=== PATIENT | female | born 1975 | race Caucasian/White ===

== ENCOUNTER 2016-09-30 18:46 | Emergency (ER) | payer BC ==
[~2016-09-30] VITALS: Ht 180.3 cm; Wt 98.7 kg
[2016-09-30 18:46] VITALS: BP 143/72
[2016-09-30] MEDS ORDERED: fentaNYL PF 100 MCG/2 ML VIAL IV PRN (19:30)
[2016-09-30 19:35] LABS: U PREG PATIENT NEGATIVE (NEG)
[2016-09-30] MEDS ORDERED: IV NORMAL SALINE 1,000ML 1,000 ML IV SCH (19:35)
[2016-09-30] MEDS ORDERED: KETOROLAC 30 MG/ML VIAL. IV ONE (19:35)
[2016-09-30] MEDS ORDERED: ONDANSETRON PF 4 MG/2 ML VIAL. IV ONE (19:35)
[2016-09-30 19:36] LABS: CLARITY,URINE CLOUDY; COLOR,URINE YELLOW
[2016-09-30 19:37] LABS: BILIRUBIN,URINE NEG (NEG)
[2016-09-30 19:38] LABS: NITRITE,URINE NEG (NEG); UROBILINOGEN,URINE 0.2 mg/dL (0.2 mg/dL)
--- NOTE | 2016-09-30 19:38 | ED.ADGEN ---
Past History Past Medical History: IBS, Kidney Stones, Other Past Surgical History: No Surgical History Alcohol Use: None Drug Use: None Adult General HPI HPI Patient is a 40-year-old woman, with a history of atrial fibrillation, irritable bowel syndrome, renal calculi, who presents to the emergency department with a complaint of back and abdominal pain associated with intractable nausea and vomiting that began this morning. Patient states that she 's had intermittent flank pain for some time, hasn't evaluated by Dr. Philip of urology, he states is planning obtaining additional imaging with IV contrast to further elucidate symptoms. She states that the symptoms she is. Sent currently do feel like her previous kidney stone, which occurred last year. She states she is having some pain with urination, persistent nausea and vomiting, denies any fevers or chills, any recent travel or surgery, chest pain or shortness breath, any respiratory symptoms, any weakness, numbness, tingling, rashes, swelling extremities, states that the symptoms have been intermittent for 2 months but have been worse today. No injuries, no inciting factors. She has taken ibuprofen and acetaminophen earlier today without relief. Last dose was midmorning. Review of Systems Review of Systems Constitutional: Denies fever or chills [] Eyes: Denies change in visual acuity, redness, or eye pain [] HENT: Denies nasal congestion or sore throat [] Respiratory: Denies cough or shortness of breath [] Cardiovascular: No additional information not addressed in HPI [] GI: Complaining of abdominal pain, nausea, vomiting, diarrhea, no bloody stools. : Dysuria, no hematuria. [] Musculoskeletal: Denies back pain or joint pain [] Integument: Denies rash or skin lesions [] Neurologic: Denies headache, focal weakness or sensory changes [] Endocrine: Denies polyuria or polydipsia [] Current Medications Current Medications Current Medications Medications (Trade) Dose Ordered Sig/Mihaela Start Time Stop Time Status Last Admin Dose Admin Fentanyl Citrate (Fentanyl 2ml Vial) 50 mcg PRN Q15MIN PRN 09/30/16 19:30 10/01/16 19:29 09/30/16 19:50 50 MCG Ketorolac Tromethamine (Toradol) 10 mg 1X ONCE 09/30/16 19:35 09/30/16 19:37 DC 09/30/16 19:50 10 MG Levofloxacin/ Dextrose 150 ml @ 150 mls/hr 1X ONCE 09/30/16 21:30 09/30/16 22:29 DC 09/30/16 21:05 150 MLS/HR Metronidazole (Flagyl) 500 mg 1X ONCE 09/30/16 21:30 09/30/16 21:31 DC 09/30/16 21:07 500 MG Ondansetron HCl (Zofran Odt) 4 mg 1X ONCE 09/30/16 21:30 09/30/16 21:31 DC 09/30/16 21:07 4 MG Ondansetron HCl (Zofran) 4 mg 1X ONCE 09/30/16 19:35 09/30/16 19:37 DC 09/30/16 19:50 4 MG Oxycodone/ Acetaminophen (Percocet 5/325) 1 tab 1X ONCE 09/30/16 21:30 09/30/16 21:31 DC 09/30/16 21:07 1 TAB Sodium Chloride 1,000 ml @ 1,000 mls/hr Q1H 09/30/16 19:35 09/30/16 20:34 DC 09/30/16 19:50 1,000 MLS/HR Allergies Allergies Allergies Coded Allergies Type Severity Reaction Last Updated Verified Cephalosporins Allergy Intermediate 11/01/15 Yes doxycycline Allergy Intermediate 11/01/15 Yes Physical Exam Physical Exam Constitutional: Well developed, well nourished, no acute distress, non-toxic appearance. [] HENT: Normocephalic, atraumatic, bilateral external ears normal, oropharynx moist, no oral exudates, nose normal. [] Eyes: PERRLA, EOMI, conjunctiva normal, no discharge. [] Neck: Normal range of motion, no tenderness, supple, no stridor. [] Cardiovascular:Heart rate regular rhythm, no murmur, S1, S2, rubs or gallops. [] Lungs & Thorax: Bilateral breath sounds clear to auscultation, no wheezing, rhonchi, rales. No chest wall crepitus or tenderness. [] Abdomen: Bowel sounds normal, soft, patient with tenderness palpation in the lower abdomen, no rebound, rigidity, no guarding, no masses, no pulsatile masses. [] Skin: Warm, dry, no erythema, no rash. [] Back: No tenderness, positive bilateral CVA tenderness. Left-sided greater than right. [] Extremities: No tenderness, no cyanosis, no clubbing, ROM intact, no edema. Negative Homans sign. [] Neurologic: Alert and oriented X 3, normal motor function, normal sensory function, no focal deficits noted. [] Psychologic: Affect normal, judgement normal, mood normal. [] Current Patient Data Vital Signs Vital Signs Date Time Temp Pulse Resp B/P (MAP) Pulse Ox O2 Delivery O2 Flow Rate FiO2 09/30/16 18:46 98.3 131 24 100 Room Air Lab Results Laboratory Tests Test 09/30/16 19:01 09/30/16 19:35 Urine Collection Type Unknown Urine Color Yellow Urine Clarity Cloudy Urine pH 5.5 Urine Specific [place] >=1.030 Urine Protein 30 mg/dl (NEG-TRACE) Urine Glucose (UA) Neg mg/dL (NEG) Urine Ketones (Stick) 15 mg/dL (NEG) Urine Blood Mod (NEG) Urine Nitrite Neg (NEG) Urine Bilirubin Neg (NEG) Urine Urobilinogen Dipstick 0.2 mg/dL (0.2 mg/dL) Urine Leukocyte Esterase Trace (NEG) Urine Test Negative (NEG) White Blood Count 10.0 x10^3/uL (4.0-11.0) Red Blood Count 4.69 x10^6/uL (3.50-5.40) Hemoglobin 14.5 g/dL (12.0-15.5) Hematocrit 42.1 % (36.0-47.0) Mean Corpuscular Volume 90 fL (79-100) Mean Corpuscular Hemoglobin 31 pg (25-35) Mean Corpuscular Hemoglobin Concent 34 g/dL (31-37) Red Cell Distribution Width 12.7 % (11.5-14.5) Platelet Count 181 x10^3/uL (140-400) Neutrophils (%) (Auto) 79 % (31-73) H Lymphocytes (%) (Auto) 15 % (24-48) L Monocytes (%) (Auto) 5 % (0-9) Eosinophils (%) (Auto) 0 % (0-3) Basophils (%) (Auto) 0 % (0-3) Neutrophils # (Auto) 8.0 x10^3uL (1.8-7.7) H Lymphocytes # (Auto) 1.5 x10^3/uL (1.0-4.8) Monocytes # (Auto) 0.5 x10^3/uL (0.0-1.1) Eosinophils # (Auto) 0.0 x10^3/uL (0.0-0.7) Basophils # (Auto) 0.0 x10^3/uL (0.0-0.2) Sodium Level 140 mmol/L (136-145) Potassium Level 3.8 mmol/L (3.5-5.1) Chloride Level 103 mmol/L (98-107) Carbon Dioxide Level 24 mmol/L (21-32) Anion Gap 13 (6-14) Blood Urea Nitrogen 8 mg/dL (7-20) Creatinine 1.0 mg/dL (0.6-1.0) Estimated GFR (Cockcroft-Gault) 62.1 BUN/Creatinine Ratio 8 (6-20) Glucose Level 94 mg/dL (70-99) Calcium Level 9.0 mg/dL (8.5-10.1) Total Bilirubin 0.6 mg/dL (0.2-1.0) Aspartate Amino Transferase (AST) 21 U/L (15-37) Alanine Aminotransferase (ALT) 27 U/L (14-59) Alkaline Phosphatase 78 U/L (46-116) Total Protein 7.5 g/dL (6.4-8.2) Albumin 3.3 g/dL (3.4-5.0) L Albumin/Globulin Ratio 0.8 (1.0-1.7) L Lipase 70 U/L (73-393) L EKG EKG EC: Sinus rhythm, heart rate 99 bpm, sinus rhythm, upright axis, QTC of 410, VT 132, QRS of 74, contour normality is noted in the anterior leads, but no ST elevations or depressions, abnormal ECG, does not meet STEMI criteria. As interpreted by me. [] Radiology/Procedures Radiology/Procedures [][address] [address] IMAGING REPORT Signed PATIENT: OMER ESTRELLA ACCOUNT: [id number] : 1975 LOCATION: ER AGE: 40 SEX: F EXAM STATUS: REG ER ORD. PHYSICIAN: VESTA HAJI DO REASON: Abd pain/flank pain/hx renal calculi PROCEDURE: CT ABDOMEN PELVIS WO CONTRAST INDICATION: ABD PAIN, HX RENAL CALCULI, SENDING PREVIOUS CT FROM 11/01/2015 COMPARISON: November 01, 2015 TECHNIQUE: Axial CT images were obtained through the abdomen and pelvis without intravenous contrast. Limited assessment of solid organ structures and vasculature secondary to lack of intravenous contrast. One or more of the following individualized dose reduction techniques were utilized for this examination: 1. Automated exposure control; 2. Adjustment of the mA and/or kV according to patient size; 3. Use of iterative reconstruction technique. FINDINGS: Abdomen: Chest Base: Partially imaged without gross abnormality. Vessels: No abdominal aortic aneurysm. Liver/Biliary: No intrahepatic biliary duct dilation. Pancreas: No peripancreatic edema. Spleen: Normal. Kidneys/Adrenal: No hydronephrosis. There is a couple suspected tiny nonobstructive renal stones measuring up to about 2 mm on the right. GI: Small fat-containing umbilical hernia. There is some edema adjacent to the colon including ascending and transverse. The appendix does not appear grossly inflamed at this time. Small free fluid. Pelvis: Bladder: No definite adjacent inflammation. There are some degenerative changes of the spine including osteophyte formation encroaching on central canal at L1-2 IMPRESSION: 1. There is edema adjacent to a portion of the proximal colon. Would correlate with symptoms in the region since colitis can have this appearance. If the patient has not had a history of colonoscopy then a follow-up examination or colonoscopy could be obtained after treatment to ensure resolution to exclude neoplastic causes. Electronically signed by: Nilo Ortega MD (09/30/2016 8:34 PM) DICTATED AND SIGNED BY: NILO ORTEGA MD DATE: 09/30/162024 CC: VESTA HAJI DO; PCP,NO ~ Course & Med Decision Making Course & Med Decision Making Pertinent Labs and Imaging studies reviewed. (See chart for details) Patient received IV Toradol, fentanyl, IV fluids, Zofran in the emergency room, with resolution of her nausea, on re-evaluation, she states she is pain-free at this time. After discussion at bedside, will obtain a noncontrast CT of the abdomen and pelvis to evaluate for renal calculi, patient also provide adequate visualization of rest of the patient's abdomen as discussed. Laboratory studies also obtained. studies not reveal any evidence acutely concerning findings. Urinalysis revealed ketones, but no nitrates, and trace leuk esterase. CT that it pelvis did not reveal any evidence of some obstructing stone or other urological complaints, however noted to have edema of the proximal colon consistent with colitis. As the patient is experiencing diarrhea along with vomiting and abdominal pain, is consistent with the patient's symptoms. Patient said states that she is a history of year-old bowel syndrome, and last received a colonoscopy 20 years ago by her estimation. She does not currently have a GI physician. At this time she continues to rest comfortably, with no further nausea or vomiting. After discussion she is agreeable to an oral trial in the emergency department, with the plan for discharge home and follow-up with GI for a colonoscopy once the acute phase is resolved. Patient was given oral antibiotics and pain medication along with Zofran in the ED, which she tolerated without issue. As her symptoms remain well managed, patient discharged home in stable condition with prescriptions for metronidazole, Levaquin, Percocet, Zofran, contact information for Dr. Barbour of gastroenterology, clear and detailed return instructions and plan as above. Final Impression Final Impression [] Problems: Dragon Disclaimer Dragon Disclaimer This electronic medical record was generated, in whole or in part, using a voice recognition dictation system. Departure: Impression: Primary Impression: Colitis Disposition: 01 HOME, SELF-CARE Condition: IMPROVED Scripts Oxycodone Hcl/Acetaminophen (PERCOCET 5-325 MG TABLET) 1 Each Tablet 1 TAB PO QID Y for PAIN, #14 TAB Prov: VESTA HAJI DO 09/30/16 Ondansetron Hcl (ZOFRAN) 4 Mg Tablet 4 MG PO PRN Q6-8HRS for NAUSEA, #12 TAB Prov: VESTA HAJI DO 09/30/16 Levofloxacin (LEVAQUIN) 750 Mg Tablet 1 TAB PO DAILY, #7 TAB Prov: VESTA HAJI DO 09/30/16 Metronidazole (METRONIDAZOLE) 500 Mg Tablet 1 TAB PO TID, #27 TAB Prov: VESTA HAJI DO 09/30/16 VESTA HAJI DO September 30, 2016 19:38
[2016-09-30 19:39] LABS: GLUCOSE,URINE NEG (NEG)
[2016-09-30 19:56] LABS: BASO % 0 % (0-3); EOS % 0 % (0-3); HEMATOCRIT 42.1 % (36.0-47.0); HEMOGLOBIN 14.5 g/dL (12.0-15.5); LYMPH # 1.5 x10^3/uL (1.0-4.8); LYMPH % 15 % (24-48); MEAN CORPUSCULAR HEMOGLOBIN 31 pg (25-35); MEAN CORPUSCULAR HGB CONC 34 g/dL (31-37); MEAN CORPUSCULAR VOLUME 90 fL (79-100); MONO # 0.5 x10^3/uL (0.0-1.1); MONO % 5 % (0-9); NEUT % 79 % (31-73); PLATELET COUNT 181 x10^3/uL (140-400); RED BLOOD COUNT 4.69 x10^6/uL (3.50-5.40); RED CELL DISTRIBUTION WIDTH 12.7 % (11.5-14.5)
[2016-09-30 20:08] LABS: ALBUMIN 3.3 g/dL (3.4-5.0); ALBUMIN/GLOBULIN RATIO 0.8 (1.0-1.7); GFR 62.1; POTASSIUM 3.8 mmol/L (3.5-5.1); TOTAL BILIRUBIN 0.6 mg/dL (0.2-1.0); TOTAL PROTEIN 7.5 g/dL (6.4-8.2)
--- NOTE | 2016-09-30 20:37 | RAD ---
INDICATION: ABD PAIN, HX RENAL CALCULI, SENDING PREVIOUS CT FROM 11/01/2015 COMPARISON: November 01, 2015 TECHNIQUE: Axial CT images were obtained through the abdomen and pelvis without intravenous contrast. Limited assessment of solid organ structures and vasculature secondary to lack of intravenous contrast. One or more of the following individualized dose reduction techniques were utilized for this examination: 1. Automated exposure control; 2. Adjustment of the mA and/or kV according to patient size; 3. Use of iterative reconstruction technique. FINDINGS: Abdomen: Chest Base: Partially imaged without gross abnormality. Vessels: No abdominal aortic aneurysm. Liver/Biliary: No intrahepatic biliary duct dilation. Pancreas: No peripancreatic edema. Spleen: Normal. Kidneys/Adrenal: No hydronephrosis. There is a couple suspected tiny nonobstructive renal stones measuring up to about 2 mm on the right. GI: Small fat-containing umbilical hernia. There is some edema adjacent to the colon including ascending and transverse. The appendix does not appear grossly inflamed at this time. Small free fluid. Pelvis: Bladder: No definite adjacent inflammation. There are some degenerative changes of the spine including osteophyte formation encroaching on central canal at L1-2 IMPRESSION: 1. There is edema adjacent to a portion of the proximal colon. Would correlate with symptoms in the region since colitis can have this appearance. If the patient has not had a history of colonoscopy then a follow-up examination or colonoscopy could be obtained after treatment to ensure resolution to exclude neoplastic causes. Electronically signed by: Richard Gardner MD (09/30/2016 8:34 PM)
[2016-09-30] MEDS ORDERED: ONDA4TAB7 PO (21:13)
[2016-09-30] MEDS ORDERED: LEVO750T31 PO (21:13)
[2016-09-30] MEDS ORDERED: OXYC-323 PO (21:13)
[2016-09-30] MEDS ORDERED: METR500T8 PO (21:13)
[2016-09-30] MEDS ORDERED: oxyCODONE/APAP 5/325 1 TAB TABLET PO ONE (21:30)
[2016-09-30] MEDS ORDERED: metroNIDAZOLE 500 MG TABLET PO ONE (21:30)
[2016-09-30] MEDS ORDERED: ONDANSETRON ODT 4 MG TAB.RAPDIS PO ONE (21:30)
--- NOTE | 2016-09-30 22:01 | EKG ---
[address] [address] Test Date: 2016-09-30 Test Time: 19:33:44 Pat Name: OMER ESTRELLA Department: Room: Gender: F Manufacturing Engineering Manager: : 1975 Requested By: VESTA HAJI Order Number: [id number] Reading MD: Chong Arana Measurements Intervals [place] Rate: 99 P: 43 FL: 132 QRS: 54 QRSD: 74 T: 25 QT: 316 QTc: 410 Interpretive Statements SINUS RHYTHM Electronically Signed On 10-02-2016 9:21:59 CDT by Chong Arana
== END 2016-09-30 22:30 | disposition home or self-care (01) ==
LOC: ER 18:46
DX: K52.9 Noninfective gastroenteritis and colitis, unspecified (principal); K58.9 Irritable bowel syndrome, unspecified; R30.9 Painful micturition, unspecified; I48.91 Unspecified atrial fibrillation; Z87.442 Personal history of urinary calculi; Z88.1 Allergy status to other antibiotic agents
CPT/HCPCS: 36415; 74176; 80053; 81003; 81025; 83690; 85027; 93005; 96361; 96365; 96375; 99285; J1885; J1956; J2405; J3010; Q0162; J7030

== ENCOUNTER → 2016-10-31 | Outpatient (CLI) | payer BC ==
[~2016-10-31] MED LIST: BARIUM SULFATE 60% 355 ML SUSP PO ONE; LEVO750T31 PO; METR500T8 PO; ONDA4TAB7 PO; OXYC-323 PO
--- NOTE | 2016-10-31 13:41 | RAD ---
Indication: Left lower quadrant abdominal pain radiating to the pelvis. The patient ingested barium contrast and serial radiographs of the abdomen were obtained. The preliminary radiograph demonstrates the bowel gas pattern to be unremarkable. Post ingestion radiographs demonstrate normal configuration to the stomach. There is prompt emptying into the small bowel. The small bowel is normal caliber. The small bowel transit time is normal. Contrast is identified within the colon at approximately 1 hour and 20 minutes. No obstruction is seen. The mucosal fold pattern is unremarkable. The terminal ileum is unremarkable. Impression: Unremarkable small bowel study.
== END | disposition home or self-care (01) ==
LOC: RAD 08:01
PROVIDERS: ATTEND Internal Medicine Gastroenterology
DX: R10.32 Left lower quadrant pain (principal); R19.7 Diarrhea, unspecified
CPT/HCPCS: 74250

== ENCOUNTER → 2017-01-28 | Outpatient (CLI) | payer BC ==
[~2017-01-28] MED LIST changes: -BARIUM SULFATE 60% 355 ML SUSP PO ONE
--- NOTE | 2017-01-28 08:48 | RAD ---
EXAM: Abdomen sonogram. HISTORY: Gallbladder sludge or gallbladder nodule on CT performed at an outside facility. TECHNIQUE: Sonographic imaging of the abdomen was performed. COMPARISON: CT dated 09/30/2016. FINDINGS: The liver is enlarged. No focal hepatic lesion is seen. The gallbladder is unremarkable. Specifically, no gallbladder sludge, wall thickening or nodule is seen. The right kidney, pancreas and inferior vena cava are unremarkable. The aorta is not formally assessed IMPRESSION: 1. Hepatomegaly. 2. Otherwise, unremarkable abdomen sonogram. Note is made that no gallbladder abnormality is seen sonographically.
== END | disposition home or self-care (01) ==
LOC: US 07:44
PROVIDERS: ATTEND Urology
DX: R16.0 Hepatomegaly, not elsewhere classified (principal); R19.09 Other intra-abdominal and pelvic swelling, mass and lump
CPT/HCPCS: 76705